=== PATIENT | male | born 1990 | race Caucasian/White ===

== ENCOUNTER → 2016-11-15 | Day surgery (SDC) | payer BC ==
[~2016-11-15] MED LIST: NO MEDICATIONS; PANTOPRAZOLE SO40 MG PO
--- NOTE | ~2016-11-15 | OR ---
Unit #: [id number] #: [id number] Patient: ANDREW DOBSON [id number] [address] [place], [place] [address] [id number] O MR#: [id number] NAME: ANDREW DOBSON ROOM: Date of Procedure: 11/15/2016 Admission Date: 11/15/2016 Surgeon: Alec Bautista M.D. : 1990 Attending Physician: Alec Bautista M.D. Primary Care Physician: Sourav Crowley M.D. OPERATIVE REPORT PREOPERATIVE DIAGNOSIS Dysphagia. PROCEDURES PERFORMED 1. Upper gastrointestinal endoscopy and biopsy. 2. Upper gastrointestinal endoscopy and a dilation with a TTS balloon. POSTOPERATIVE DIAGNOSES 1. The patient had classic changes of eosinophilic esophagitis with the circular rings, longitudinal furrows, and a tight stricture in the distal esophagus. The latter was dilated using a 12 to 15 mm TTS balloon. 2. Biopsy was also obtained from the esophageal mucosa and sent for histology. 3. Rest of the examination up to third part of duodenum was normal. RECOMMENDATIONS Considerable discussion was held with the patient, his mom, and grandma. They were explained the epidemiology and pathogenesis of EE. In addition, the patient is being started on pantoprazole 40 mg p.o. daily. When he comes back for a followup in your office in 6 to 8 weeks' time, oral inhaled steroids will be started especially if the patient is still symptomatic. He will require a repeat dilation in the next 8 to 12 weeks' time. SEDATION USED MAC. DESCRIPTION OF PROCEDURE Following detailed explanation of potential risks and complications of upper endoscopy, namely perforation, bleeding, and complications related to sedation, the patient was brought to GI lab and laid in the left lateral decubitus position. Lubricated tip of the Olympus video upper endoscope was passed through the bite block into the proximal esophagus under direct vision. The entire esophageal mucosa was examined. The patient was noted to have classic changes of eosinophilic esophagitis with linear furrows, circular folds, and multiple strictures. The most dominant stricture was in the distal esophagus, which was about 7 or 8 mm and not possible to navigate with the scope shaft. The scope was nudged through the stricture with a gentle force and the stricture was dilated with the shaft of the scope. The scope was then advanced into the gastric cavity and the latter was insufflated. Mucosa of the fundus, body, and antrum was examined and appeared unremarkable. Pylorus was intubated with Unit #: [id number] #: [id number] Patient: ANDREW DOBSON visualization of normal duodenal bulb and second and third part of the duodenum. Upon withdrawal and retroflexion; incisura, cardia, and greater curve was examined and no additional findings were noted. The scope was then withdrawn in the distal esophagus. Using a 12 to 15 mm TTS balloon, the distal esophageal stricture was further dilated up to 15 mm. Minimal bleeding was noted after dilation and a clear-cut mucosal tear was seen. The area was thoroughly washed with water and good hemostasis was achieved. We also obtained biopsies from the esophageal mucosa and sent for histology. The entire esophageal mucosa was examined all the way up to pharynx. No additional findings were noted. The patient tolerated the procedure without any postprocedure complications. Dictated by... Suad Koroma/grant TD: 11/15/2016 15:34 JOB #: [id number] OPERATIVE REPORT Page 1 of 1 X Alec Bautista MD X PROCEDURE OPERATIVE NOTE
== END | disposition home or self-care (01) ==
LOC: COPS 08:27
DX: K22.2 Esophageal obstruction (principal); Z87.01 Personal history of pneumonia (recurrent)
CPT/HCPCS: 88305; J2250